=== PATIENT | male | born 1945 | race Caucasian/White ===

== ENCOUNTER 2019-02-18 12:48 | Inpatient (IN) | payer MEDICARE, OTHER ==
[2019-02-18] MEDS ORDERED: THIAMINE 100 MG TAB PO SCH (17:00)
[2019-02-18] MEDS ORDERED: LORazepam 2 MG/ML INJ IV PRN ×3 (17:06)
[2019-02-18] MEDS ORDERED: NALOXONE 0.4 MG/ML 1 ML VIAL IV PRN (17:07)
[2019-02-18] MEDS ORDERED: ACETAMINOPHEN TAB 325 MG TAB PO PRN (17:07)
--- NOTE | 2019-02-18 17:14 | P.HPIM ---
History of Present Illness 73-year-old male was transferred from [facility] for cellulitis. Patient had a fall couple days ago appears to be mechanical fall. Patient does have significant redness in the left hand denied any fever chills at home. Patient is comparing of pain in that area patient does have a have cellulitis patient has an area of skin breakdown appears to be from scratching that area which may be a nidus for infection patient denied any previous history of MRSA there is no lymphadenopathy. Patient will be started on ceftezole and if patient doesn't improve then we will consult infectious disease and switched to vancomycin to cover MRSA as well as will obtain blood cultures negative no significant wounds with drainage to do any wound cultures. Patient had imaging of the left hand as well as left leg did not show any fracture. Patient has redness of the whole left hand extending up to the wrist area with local is of temperature and mild tenderness. Patient denied any out of proportion pain in that area. Patient denies drinking alcohol upon further questioning he says he does drink alcohol every day but about one beer a day and believes he drinks more than that patient denied any previous history of all call withdraws but patient was started on withdrawal protocol along with thiamine supplementation and IV fluids for that no other lab abnormality was significantly appreciated [facility] labs. Review of Systems REVIEW OF SYSTEMS: CONSTITUTIONAL: No fever, no malaise, no fatigue. HEENT: No recent visual problems or hearing problems. Denied any sore throat. CARDIOVASCULAR: No chest pain, orthopnea, PND, no palpitations, no syncope. PULMONARY: No shortness of breath, no cough, no hemoptysis. GASTROINTESTINAL: No diarrhea, no nausea, no vomiting, no abdominal pain. NEUROLOGICAL: No headaches, no weakness, no numbness. HEMATOLOGICAL: Denies any bleeding or petechiae. GENITOURINARY: Denies any burning micturition, frequency, or urgency. MUSCULOSKELETAL/RHEUMATOLOGICAL: Denies any joint pain, swelling, or any muscle pain. ENDOCRINE: Denies any polyuria or polydipsia. The rest of the 14-point review of systems is negative. Past Medical History Additional Past Medical History / Comment(s): 2012 wrist fracture History of Any Multi-Drug Resistant Organisms: None Reported Past Surgical History: No Surgical Hx Reported Past Anesthesia/Blood Transfusion Reactions: Unable to Obtain Additional Past Anesthesia/Blood Transfusion Reaction / Comment(s): Pt has never had surgery Smoking Status: Former smoker - Past Family History Father Family Medical History: No Reported History Additional Family Medical History / Comment(s): Father was healthy Mother Family Medical History: Diabetes Mellitus Medications and Allergies Home Medications Medication Instructions Recorded Confirmed Type No Known Home Medications 02/18/19 02/18/19 History Allergies Allergy/AdvReac Type Severity Reaction Status Date / Time No Known Allergies Allergy Verified 02/18/19 16:34 Physical Exam Vitals: Vital Signs Temp Pulse Resp BP Pulse Ox 02/18/19 16:10 98.8 F 89 18 194/85 97 Intake and Output 02/18/19 02/18/19 02/18/19 06:59 14:59 22:59 Other: Weight 105.5 kg PHYSICAL EXAMINATION: GENERAL: The patient is alert and oriented x3, not in any acute distress. Well developed, well nourished. HEENT: Pupils are round and equally reacting to light. EOMI. No scleral icterus. No conjunctival pallor. Normocephalic, atraumatic. No pharyngeal erythema. No thyromegaly. CARDIOVASCULAR: S1 and S2 present. No murmurs, rubs, or gallops. PULMONARY: Chest is clear to auscultation, no wheezing or crackles. ABDOMEN: Soft, nontender, nondistended, normoactive bowel sounds. No palpable organomegaly. MUSCULOSKELETAL: No joint swelling or deformity. EXTREMITIES: No cyanosis, clubbing, or pedal edema. NEUROLOGICAL: Gross neurological examination did not reveal any focal deficits. SKIN: Cellulitis as mentioned in HPI on the left hand Thrombosis Risk Factor Assmnt - Choose All That Apply Any of the Below Risk Factors Present?: Yes Other Risk Factors: Yes Each Risk Factor Represents 2 Points: Age 61-74 years Other congenital or acquired thrombophilia - If yes, enter type in comment: No Thrombosis Risk Factor Assessment Total Risk Factor Score: 2 Thrombosis Risk Factor Assessment Level: Low Risk Assessment and Plan Plan: -Left tonsillitis: Patient will be started on Cafazolin and there is no evidence of MRSA infection and monitor him today. -Possible alcohol abuse and possibility of alcohol withdrawal because of which patient will be started on Ativan [facility] protocol -Elevated blood pressure: This is only one blood pressure reading will monitor clinically patient will not be started on any antidepressants medications -Recent fall appears to be mechanical fall in May be secondary to alcohol overdose no fractures were evident on imaging studies patient doesn't have any obvious swelling consistent with fracture -Due to prophylaxis with subcutaneous heparin
[2019-02-18] MEDS: SODIUM CHLORIDE 0.9% 1,000 ML IV SCH (18:01)
[2019-02-18] MEDS: KETOROLAC 30 MG/ML 1 ML VIAL IVP PRN (18:02)
[2019-02-18] MEDS: THIAMINE 100 MG TAB PO SCH (18:03)
[2019-02-18 20:07] LABS: HCT 38.4 % (39.0-53.0); HGB 12.7 gm/dL (13.0-17.5); MCH 30.5 pg (25.0-35.0); MCV 92.5 fL (80.0-100.0); Mean Platelet Volume 8.1; Platelet Count 236 k/uL (150-450); RBC 4.16 m/uL (4.30-5.90); RDW 13.9 % (11.5-15.5); WBC 14.5 k/uL (3.8-10.6)
[2019-02-18 20:39] LABS: Lymphocytes # (M) 1.45 k/uL (1.0-4.8); Monocytes # (M) 1.89 k/uL (0-1.0); Neutrophils # (M) 11.17 k/uL (1.3-7.7); Neutrophils % (M) 77 %; Nucleated Red Blood Cells 0 /100 WBC (0-0); Total Cells Counted 100
[2019-02-18] MEDS: FAMOTIDINE 20 MG TAB PO SCH (22:08)
[2019-02-19] MEDS: HEPARIN SODIUM,PORCINE 5,000 UNIT/ML 1 ML VIAL SQ SCH ×5 (00:36→23:38)
[2019-02-19] MEDS: SODIUM CHLORIDE 0.9% 1,000 ML IV SCH ×3 (03:49→23:41)
[2019-02-19 08:01] LABS: Anion Gap 10 mmol/L; Blood Urea Nitrogen 24 mg/dL (9-20); Calcium 8.9 mg/dL (8.4-10.2); Carbon Dioxide 22 mmol/L (22-30); Chloride 109 mmol/L (98-107); Glucose 98 mg/dL (74-99); Sodium 141 mmol/L (137-145)
[2019-02-19] MEDS: THIAMINE 100 MG TAB PO SCH ×2 (08:28→16:36)
[2019-02-19] MEDS: FAMOTIDINE 20 MG TAB PO SCH ×2 (08:28→22:08)
[2019-02-19] MEDS ORDERED: THIAMINE 100 MG TAB PO SCH (12:00)
--- NOTE | 2019-02-19 14:51 | P.PN ---
Subjective 73-year-old is being treated for cellulitis of the left hand is on ceftezole in with significant improvement in redness ceftezole and will be continued today. Patient has intermittent swelling in the left knee with effusion patient had a fall although there is no obvious fracture in the left ankle area as well as which is swollen with effusion. Consul orthopedic surgery. Patient appears to have soft tissue injury will continue with anti-inflammatory medications. Patient right third toe appears to have swelling which looks like gout although there is no redness local is of temperature and patient doesn't have any pain in that area either. Patient is being monitored for all call withdrawal so far he doesn't have any alcohol withdrawals at this time. Constitutional: Denied any fatigue denied any fever. Cardio vascular: denied any chest pain, palpitations Gastrointestinal denied any nausea vomiting Pulmonary: Denied any shortness of breath cough Neurologic denied any new focal deficits All inpatient medications were reviewed and appropriate changes in these medications as dictated in the interval history and assessment and plan. Objective - Vital Signs Vital signs: Vital Signs Temp 98.5 F 02/19/19 12:05 Pulse 87 02/19/19 12:05 Resp 18 02/19/19 12:05 BP 194/70 02/19/19 12:05 Pulse Ox 98 02/19/19 12:05 Intake & Output 02/18/19 02/19/19 02/19/19 18:59 06:59 18:59 Intake Total 1450 Output Total 1999 Balance -1999 1450 Weight 105.5 kg Intake: Intake, IV Titration 850 Amount Sodium Chloride 0.9% 1, 800 000 ml @ 100 mls/hr IV . Q10H [facility] Rx#:[id number] ceFAZolin 1,000 mg In 50 Sodium Chloride 0.9% 50 ml @ 100 mls/hr IVPB Q6HR [facility] Rx#:[id number] Oral 600 Output: Urine 1999 Other: Voiding Method Bedside Commode Bedside Commode Urinal # Voids 1 1 # Bowel Movements 1 1 - Exam PHYSICAL EXAMINATION: GENERAL: The patient is alert and oriented x3, not in any acute distress. Well developed, well nourished. HEENT: Pupils are round and equally reacting to light. EOMI. No scleral icterus. No conjunctival pallor. Normocephalic, atraumatic. No pharyngeal erythema. No t hyromegaly. CARDIOVASCULAR: S1 and S2 present. No murmurs, rubs, or gallops. PULMONARY: Chest is clear to auscultation, no wheezing or crackles. ABDOMEN: Soft, nontender, nondistended, normoactive bowel sounds. No palpable organomegaly. MUSCULOSKELETAL: No joint swelling or deformity. EXTREMITIES: No cyanosis, clubbing, or pedal edema. NEUROLOGICAL: Gross neurological examination did not reveal any focal deficits. SKIN: Cellulitis as mentioned in HPI on the left handmy effusion and swelling of the left knee along with left ankle - Labs CBC & Chem 7: 02/18/19 18:03 02/19/19 07:26 Labs: Abnormal Lab Results - Last 24 Hours (Table) 02/18/19 02/19/19 Range/Units 18:03 07:26 WBC 14.5 H (3.8-10.6) k/uL RBC 4.16 L (4.30-5.90) m/uL Hgb 12.7 L (13.0-17.5) gm/dL Hct 38.4 L (39.0-53.0) % Neutrophils # (Manual) 11.17 H (1.3-7.7) k/uL Monocytes # (Manual) 1.89 H (0-1.0) k/uL Chloride 109 H (98-107) mmol/L BUN 24 H (9-20) mg/dL Creatinine 0.62 L (0.66-1.25) mg/dL Assessment and Plan Plan: -Left hand cellulitis: Patient is on ceftezolin and with improvement in redness ceftezole and will be continued. -Left any swelling or effusion and pain along with left hip ankle effusion: There is no obvious fracture and x-rays I'll consult orthopedic surgery continue with anti-inflammatory medications. -Possible alcohol abuse and possibility of alcohol withdrawal because of which [facility], no alcohol withdrawal so far do not expect him to have all call withdraws anymore -Elevated blood pressure: Timothy pressures consistently elevateddistantly elevated, patient probably has essential hypertension, I'll start him on KEREN inhibitor -DVT prophylaxis with subcutaneous heparin
[2019-02-19] MEDS: LISINOPRIL 5 MG TAB PO SCH (16:35)
[2019-02-19] MEDS: KETOROLAC 30 MG/ML 1 ML VIAL IVP PRN (22:08)
[2019-02-20] MEDS: SODIUM CHLORIDE 0.9% 1,000 ML IV SCH ×2 (02:00→12:57)
[2019-02-20] MEDS: LISINOPRIL 5 MG TAB PO SCH (07:43)
[2019-02-20] MEDS: THIAMINE 100 MG TAB PO SCH ×2 (07:43→16:54)
[2019-02-20] MEDS: FAMOTIDINE 20 MG TAB PO SCH ×2 (07:43→19:59)
[2019-02-20] MEDS: HEPARIN SODIUM,PORCINE 5,000 UNIT/ML 1 ML VIAL SQ SCH ×3 (07:43→23:41)
[2019-02-20 08:06] LABS: HGB 11.3 gm/dL (13.0-17.5); MCH 31.8 pg (25.0-35.0); MCHC 34.3 g/dL (31.0-37.0); MCV 92.8 fL (80.0-100.0); Mean Platelet Volume 7.6; Platelet Count 220 k/uL (150-450); RBC 3.56 m/uL (4.30-5.90); RDW 13.4 % (11.5-15.5); WBC 11.7 k/uL (3.8-10.6)
[2019-02-20 08:14] LABS: Anion Gap 6 mmol/L; Blood Urea Nitrogen 23 mg/dL (9-20); Calcium 8.3 mg/dL (8.4-10.2); Carbon Dioxide 24 mmol/L (22-30); Chloride 110 mmol/L (98-107); Glucose 98 mg/dL (74-99); Potassium 3.8 mmol/L (3.5-5.1); Sodium 140 mmol/L (137-145)
--- NOTE | 2019-02-20 10:56 | XR ---
EXAMINATION TYPE: XR ankle complete LT, XR foot complete LT , 6 VIEWS DATE OF EXAM ORDERED: 02/20/2019 HISTORY: pain and swelling. COMPARISON: None. FINDINGS: No fracture, dislocation or ankle joint effusion is seen. About the foot, there is mild degenerative change present in the left first MTP joint. There is also mild degenerative change in the left first tarsometatarsal joint. No fracture, dislocation or other a cute osseous lesion is seen. IMPRESSION: 1. NO ACUTE OSSEOUS LESION. 2. DEGENERATIVE CHANGE.
--- NOTE | 2019-02-20 14:28 | P.PN ---
Subjective 73-year-old is being treated for cellulitis of the left hand is on ceftezole in with significant improvement in redness ceftezole and will be continued today. Patient has intermittent swelling in the left knee with effusion patient had a fall although there is no obvious fracture in the left ankle area as well as which is swollen with effusion. Consul orthopedic surgery. Patient appears to have soft tissue injury will continue with anti-inflammatory medications. Patient right third toe appears to have swelling which looks like gout although there is no redness local is of temperature and patient doesn't have any pain in that area either. Patient is being monitored for all call withdrawal so far he doesn't have any alcohol withdrawals at this time. 02/20/2019 Patient's redness in the left hand is significant improved but the because of her significant swelling and the left knee patient is unable to ambulate and is requiring help any dysuria is of rehabilitation. Get physical therapy and outpatient therapy to evaluate the patient. Possibly of discharge tomorrow either to subacute rehabilitation or home with home care. Constitutional: Denied any fatigue denied any fever. Cardio vascular: denied any chest pain, palpitations Gastrointestinal denied any nausea vomiting Pulmonary: Denied any shortness of breath cough Neurologic denied any new focal deficits All inpatient medications were reviewed and appropriate changes in these medications as dictated in the interval history and assessment and plan. Objective - Vital Signs Vital signs: Vital Signs Temp 98.1 F 02/20/19 13:42 Pulse 80 02/20/19 13:42 Resp 18 02/20/19 13:42 BP 167/89 02/20/19 13:42 Pulse Ox 94 L 02/20/19 13:42 Intake & Output 02/19/19 02/20/19 02/20/19 18:59 06:59 18:59 Intake Total 1450 1100 Balance 1450 1100 Intake: Intake, IV Titration 850 900 Amount Sodium Chloride 0.9% 1, 800 900 000 ml @ 100 mls/hr IV . Q10H [facility] Rx#:[id number] ceFAZolin 1,000 mg In 50 Sodium Chloride 0.9% 50 ml @ 100 mls/hr IVPB Q6HR [facility] Rx#:[id number] Oral 600 200 Other: Voiding Method Bedside Commode Bedside Commode Bedside Commode Urinal Urinal Urinal # Voids 1 1 2 # Bowel Movements 1 1 - Exam PHYSICAL EXAMINATION: GENERAL: The patient is alert and oriented x3, not in any acute distress. Well developed, well nourished. HEENT: Pupils are round and equally reacting to light. EOMI. No scleral icterus. No conjunctival pallor. Normocephalic, atraumatic. No pharyngeal erythema. No thyromegaly. Patient has significant halitosis CARDIOVASCULAR: S1 and S2 present. No murmurs, rubs, or gallops. PULMONARY: Chest is clear to auscultation, no wheezing or crackles. ABDOMEN: Soft, nontender, nondistended, normoactive bowel sounds. No palpable organomegaly. MUSCULOSKELETAL: No joint swelling or deformity. EXTREMITIES: No cyanosis, clubbing, or pedal edema. NEUROLOGICAL: Gross neurological examination did not reveal any focal deficits. SKIN: Cellulitis improved and the left knee has a stabilizer now was a valid by arthritic surgery - Labs CBC & Chem 7: 02/20/19 06:56 02/20/19 06:56 Labs: Abnormal Lab Results - Last 24 Hours (Table) 02/20/19 02/20/19 Range/Units 06:56 06:56 WBC 11.7 H (3.8-10.6) k/uL RBC 3.56 L (4.30-5.90) m/uL Hgb 11.3 L (13.0-17.5) gm/dL Hct 33.0 L (39.0-53.0) % Chloride 110 H (98-107) mmol/L BUN 23 H (9-20) mg/dL Creatinine 0.56 L (0.66-1.25) mg/dL Calcium 8.3 L (8.4-10.2) mg/dL Microbiology - Last 24 Hours (Table) 02/18/19 18:03 Blood Culture - Preliminary Blood No Growth after 24 hours Assessment and Plan Plan: -Left hand cellulitis: Patient is on cefazolin and with improvement in redness ceftezole and will be continued. -Left any swelling or effusion and pain along with left hip ankle effusion: There is no obvious fracture and x-rays I'll consult orthopedic surgery evaluated the patient and the patient will be on anti-inflammatory medications. Probably due to soft tissue injury GERD -Possible alcohol abuse, no alcohol withdrawal -Elevated blood pressure: Timothy pressures consistently elevateddistantly elevated, patient probably has essential hypertension, she was started on KEREN inhibitor blood pressure is bit better today -DVT prophylaxis with subcutaneous heparin
--- NOTE | 2019-02-20 17:51 | P.CNOR ---
History of Present Illness - [facility] Consult date: 02/20/19 Requesting physician: Stewart Ba Consult reason: joint pain History of present illness: Patient is seen at bedside this morning in consultation for left knee pain and swelling. He states he misstepped going down steps a few days ago. He developed pain and swelling at left knee, ankle and foot. He had xrays in [place] that were negative. He continues to have pain, swelling and limited ROM with the knee. He also states that he has left ankle and foot pain. He denies numbness, tingling, calf pain, fever, chills, chest pain, shortness of breath or other. Review of Systems All systems: negative Constitutional: Denies chills, Denies fever Eyes: denies blurred vision, denies pain Ears, nose, mouth and throat: Denies headache, Denies sore throat Cardiovascular: Denies chest pain, Denies shortness of breath Respiratory: Denies cough Gastrointestinal: Denies abdominal pain, Denies diarrhea, Denies nausea, Denies vomiting Musculoskeletal: Denies myalgias Integumentary: Denies pruritus, Denies rash Neurological: Denies numbness, Denies weakness Psychiatric: Denies anxiety, Denies depression Endocrine: Denies fatigue, Denies weight change Past Medical History Additional Past Medical History / Comment(s): 2013 L wrist fracture History of Any Multi-Drug Resistant Organisms: None Reported Past Surgical History: No Surgical Hx Reported Past Anesthesia/Blood Transfusion Reactions: Unable to Obtain Additional Past Anesthesia/Blood Transfusion Reaction / Comm: Pt has never had surgery Smoking Status: Former smoker - Past Family History Father Family Medical History: No Reported History Additional Family Medical History / Comment(s): Father was healthy Mother Family Medical History: Diabetes Mellitus Medications and Allergies Home Medications Medication Instructions Recorded Confirmed Type Multivitamins, Thera [Multivitamin 1 tab PO DAILY 02/18/19 02/18/19 History (formulary)] Allergies Allergy/AdvReac Type Severity Reaction Status Date / Time No Known Allergies Allergy Verified 02/18/19 18:29 Physical Examination He has painless ROM of the left hip. There is a moderate effusion at the left knee. There is no erythema. No deformity. It is not hot to touch. There is medial joint line pain. There is pain with flexion to 80 degrees. The knee appears ligamentously stable. Calf is soft and nontender. There is ankle pain at the medial malleolus tender to touch. No erythema, effusion and not hot to touch. No deformity. Ligamentously stable. Tender at dorsum of foot. NVI with 2+ DP pulses and less than 2 sec cap refill. Results Outside Xrays of left knee are negative for fracture/dislocation - Labs Labs: Abnormal Lab Results - Last 24 Hours (Table) 02/20/19 02/20/19 Range/Units 06:56 06:56 WBC 11.7 H (3.8-10.6) k/uL RBC 3.56 L (4.30-5.90) m/uL Hgb 11.3 L (13.0-17.5) gm/dL Hct 33.0 L (39.0-53.0) % Chloride 110 H (98-107) mmol/L BUN 23 H (9-20) mg/dL Creatinine 0.56 L (0.66-1.25) mg/dL Calcium 8.3 L (8.4-10.2) mg/dL Microbiology - Last 24 Hours (Table) 02/18/19 18:03 Blood Culture - Preliminary Blood No Growth after 24 hours H & H 02/18/19 02/20/19 Range/Units 18:03 06:56 Hgb 12.7 L 11.3 L (13.0-17.5) gm/dL Hct 38.4 L 33.0 L (39.0-53.0) % Result Diagrams: 02/20/19 06:56 02/20/19 06:56 Assessment and Plan (1) Knee effusion, left Narrative/Plan: Patient has effusion and possible intra-articular injury. There is no sign of infection. Apply knee immobilizer, elevate and ice. Use crutches. Anti- inflammatories if ok with primary team. Will obtain xrays of ankle and foot. If ankle and foot xrays are negative then he may follow up as an outpatient. He may need MRI of left knee for further evaluation. TDWB is ok. Continue pain management and DVT prophylaxis per primary team. Current Visit: Yes Status: Acute Priority: Medium Code(s): M25.462 - EFFUSION, LEFT KNEE SNOMED Code(s): 824214989648457 (2) Ankle pain, left Current Visit: Yes Status: Acute Priority: Medium Code(s): M25.572 - PAIN IN LEFT ANKLE AND JOINTS OF LEFT FOOT SNOMED Code(s): 620032933 (3) Foot pain, left Current Visit: Yes Status: Acute Priority: Medium Code(s): M79.672 - PAIN IN LEFT FOOT SNOMED Code(s): 51567105
[2019-02-21] MEDS: FAMOTIDINE 20 MG TAB PO SCH ×2 (08:00→20:48)
[2019-02-21] MEDS: THIAMINE 100 MG TAB PO SCH ×2 (08:00→16:54)
[2019-02-21] MEDS: LISINOPRIL 5 MG TAB PO SCH (08:00)
[2019-02-21] MEDS: HEPARIN SODIUM,PORCINE 5,000 UNIT/ML 1 ML VIAL SQ SCH ×3 (08:00→23:23)
[2019-02-21] MEDS: KETOROLAC 30 MG/ML 1 ML VIAL IVP PRN ×2 (08:06→20:47)
--- NOTE | 2019-02-21 15:32 | P.PN ---
Subjective 73-year-old is being treated for cellulitis of the left hand is on ceftezole in with significant improvement in redness ceftezole and will be continued today. Patient has intermittent swelling in the left knee with effusion patient had a fall although there is no obvious fracture in the left ankle area as well as which is swollen with effusion. Consul orthopedic surgery. Patient appears to have soft tissue injury will continue with anti-inflammatory medications. Patient right third toe appears to have swelling which looks like gout although there is no redness local is of temperature and patient doesn't have any pain in that area either. Patient is being monitored for all call withdrawal so far he doesn't have any alcohol withdrawals at this time. 02/20/2019 Patient's redness in the left hand is significant improved but the because of her significant swelling and the left knee patient is unable to ambulate and is requiring help any dysuria is of rehabilitation. Get physical therapy and outpatient therapy to evaluate the patient. Possibly of discharge tomorrow either to subacute rehabilitation or home with home care. 02/21/2019 Patient is a good will require subacute rehabilitation patient is agreeable to go there. Patient will be discharged tomorrow to subacute rehab Constitutional: Denied any fatigue denied any fever. Cardio vascular: denied any chest pain, palpitations Gastrointestinal denied any nausea vomiting Pulmonary: Denied any shortness of breath cough Neurologic denied any new focal deficits All inpatient medications were reviewed and appropriate changes in these medications as dictated in the interval history and assessment and plan. Objective - Vital Signs Vital signs: Vital Signs Temp 97.6 F 02/21/19 12:04 Pulse 77 02/21/19 12:04 Resp 20 02/21/19 12:04 BP 173/76 02/21/19 12:04 Pulse Ox 97 02/21/19 12:04 Intake & Output 02/20/19 02/21/19 02/21/19 18:59 06:59 18:59 Intake Total 890 50 Balance 890 50 Intake: Intake, IV Titration 50 50 Amount ceFAZolin 1,000 mg In 50 50 Sodium Chloride 0.9% 50 ml @ 100 mls/hr IVPB Q6HR [facility] Rx#:[id number] Oral 840 Other: Voiding Method Bedside Commode Bedside Commode Bedside Commode Urinal Urinal Urinal # Voids 2 1 # Bowel Movements 1 1 - Exam PHYSICAL EXAMINATION: GENERAL: The patient is alert and oriented x3, not in any acute distress. Well developed, well nourished. HEENT: Pupils are round and equally reacting to light. EOMI. No scleral icterus. No conjunctival pallor. Normocephalic, atraumatic. No pharyngeal erythema. No thyromegaly. Patient has significant halitosis CARDIOVASCULAR: S1 and S2 present. No murmurs, rubs, or gallops. PULMONARY: Chest is clear to auscultation, no wheezing or crackles. ABDOMEN: Soft, nontender, nondistended, normoactive bowel sounds. No palpable organomegaly. MUSCULOSKELETAL: No joint swelling or deformity. EXTREMITIES: No cyanosis, clubbing, or pedal edema. NEUROLOGICAL: Gross neurological examination did not reveal any focal deficits. SKIN: Cellulitis improved and the left knee has a stabilizer now was a valid by arthritic surgery - Labs CBC & Chem 7: 02/20/19 06:56 02/20/19 06:56 Labs: Microbiology - Last 24 Hours (Table) 02/18/19 18:03 Blood Culture - Preliminary Blood No Growth after 48 hours Assessment and Plan Plan: -Left hand cellulitis: Patient is on cefazolin and with improvement in redness ceftezolin and will be continued. -Left any swelling or effusion and pain along with left hip ankle effusion: There is no obvious fracture and x-rays I'll consult orthopedic surgery evaluated the patient and the patient will be on anti-inflammatory medications. Probably due to soft tissue injury. -Possible alcohol abuse, no alcohol withdrawal -Elevated blood pressure: Timothy pressures consistently elevateddistantly elevated, patient probably has essential hypertension, she was started on KEREN inhibitor blood pressure is bit better today -Generalized deconditioning will need to subacute rehabilitation. Patient appears to have soft tissue injury and some knee effusion on the left side secondary to osteoarthritis. Patient has a immobilizer and will follow-up with the orthopedic surgery as an outpatient -DVT prophylaxis with subcutaneous heparin
[2019-02-22] MEDS: HEPARIN SODIUM,PORCINE 5,000 UNIT/ML 1 ML VIAL SQ SCH ×2 (07:43→18:16)
[2019-02-22] MEDS: FAMOTIDINE 20 MG TAB PO SCH (07:43)
[2019-02-22] MEDS: LISINOPRIL 5 MG TAB PO SCH (07:43)
[2019-02-22] MEDS: THIAMINE 100 MG TAB PO SCH ×2 (07:43→18:16)
[2019-02-22 11:47] VITALS: BP 185/81; PULSE 80; RESP 16; TEMP 98.3
--- NOTE | 2019-02-22 14:32 | P.DS ---
Providers Date of admission: 02/18/19 16:05 Attending physician: Romulo Perkins Consults: 02/19/19 15:34 Consult Physician Routine Consulting Provider: Stewart Ba Consult Reason/Comments: Left knee pain/swollen Do you want consulting provider notified?: Yes Primary care physician: Stated None Hospital Course: 73-year-old is being treated for cellulitis of the left hand is on ceftezole in with significant improvement in redness ceftezole and will be continued today. Patient has intermittent swelling in the left knee with effusion patient had a fall although there is no obvious fracture in the left ankle area as well as which is swollen with effusion. Consul orthopedic surgery. Patient appears to have soft tissue injury will continue with anti-inflammatory medications. Patient right third toe appears to have swelling which looks like gout although there is no redness local is of temperature and patient doesn't have any pain in that area either. Patient is being monitored for all call withdrawal so far he doesn't have any alcohol withdrawals at this time. 02/20/2019 Patient's redness in the left hand is significant improved but the because of her significant swelling and the left knee patient is unable to ambulate and is requiring help any dysuria is of rehabilitation. Get physical therapy and outpatient therapy to evaluate the patient. Possibly of discharge tomorrow eit her to subacute rehabilitation or home with home care. 02/21/2019 Patient is a good will require subacute rehabilitation patient is agreeable to go there. Patient will be discharged tomorrow to subacute rehab. 02/22/2019 No overnight events patient is clinically doing well will be discharged to subacute rehab. PHYSICAL EXAMINATION: GENERAL: The patient is alert and oriented x3, not in any acute distress. Well developed, well nourished. HEENT: Pupils are round and equally reacting to light. EOMI. No scleral icterus. No conjunctival pallor. Normocephalic, atraumatic. No pharyngeal erythema. No thyromegaly. Patient has significant halitosis CARDIOVASCULAR: S1 and S2 present. No murmurs, rubs, or gallops. PULMONARY: Chest is clear to auscultation, no wheezing or crackles. ABDOMEN: Soft, nontender, nondistended, normoactive bowel sounds. No palpable organomegaly. MUSCULOSKELETAL: No joint swelling or deformity. EXTREMITIES: No cyanosis, clubbing, or pedal edema. NEUROLOGICAL: Gross neurological examination did not reveal any focal deficits. SKIN: Cellulitis improved and the left knee has a stabilizer. Assessment and Plan Plan: -Left hand cellulitis: Patient is on cefazolin and with improvement in redness, patient will be discharged in keflex -Left any swelling or effusion and pain along with left hip ankle effusion: There is no obvious fracture and x-rays I'll patient will be on anti- inflammatory medications. Probably due to soft tissue injury. Follow up with orthopedic surgery as an outpatient -Possible alcohol abuse, no alcohol withdrawal Essential hypertension was started on lisinopril -Generalized deconditioning will need to subacute rehabilitation. Plan - Discharge Summary Discharge Rx Participant: No New Discharge Prescriptions: New Cephalexin [Keflex] 500 mg PO Q6HR 5 Days #15 cap Ibuprofen [Motrin] 400 mg PO Q8HR PRN #20 tab PRN Reason: Pain Famotidine [Pepcid] 20 mg PO BID tab Thiamine [Vitamin B-1] 100 mg PO BID-W/MEALS tab Lisinopril [Zestril] 10 mg PO DAILY tab Continue Multivitamins, Thera [Multivitamin (formulary)] 1 tab PO DAILY Discharge Medication List Multivitamins, Thera [Multivitamin (formulary)] 1 tab PO DAILY 02/18/19 [History] Cephalexin [Keflex] 500 mg PO Q6HR 5 Days #15 cap 02/22/19 [Rx] Famotidine [Pepcid] 20 mg PO BID tab 02/22/19 [Rx] Ibuprofen [Motrin] 400 mg PO Q8HR PRN #20 tab 02/22/19 [Rx] Lisinopril [Zestril] 10 mg PO DAILY tab 02/22/19 [Rx] Thiamine [Vitamin B-1] 100 mg PO BID-W/MEALS tab 02/22/19 [Rx] Follow up Appointment(s)/Referral(s): Sanya Kraus MD [STAFF PHYSICIAN] - 1 Week Stewart Ba MD [STAFF PHYSICIAN] - 1 Week Patient Instructions/Handouts: Cephalexin (By mouth), Ibuprofen (By mouth), Cellulitis (DC) Activity/Diet/Wound Care/Special Instructions: maintain knee immobilizer and crutches ice and elevate TDWB F/U with Dr. Ba in office Discharge Disposition: TRANSFER TO SNF/F
[2019-02-23] MEDS ORDERED: LISINOPRIL 10 MG TAB PO SCH (09:00)
== END 2019-02-22 19:00 | DRG 603 ==
LOC: 3NMEDONC 16:05
PROVIDERS: ADMIT Internal Medicine; ATTEND Internal Medicine
DX: L03.114 Cellulitis of left upper limb (principal); M10.9 Gout, unspecified; I10 Essential (primary) hypertension; M25.462 Effusion, left knee; M25.572 Pain in left ankle and joints of left foot; M79.672 Pain in left foot; F10.10 Alcohol abuse, uncomplicated; M25.472 Effusion, left ankle; Z87.891 Personal history of nicotine dependence; Z86.14 Personal history of Methicillin resistant Staphylococcus aureus infection; Z83.3 Family history of diabetes mellitus; W19.XXXA Unspecified fall, initial encounter
CPT/HCPCS: 80048; 85025; 85027; 87040